=== PATIENT | female | born 1980 | race Caucasian/White ===

== ENCOUNTER 2019-04-11 17:48 | Emergency (ER) | payer SELFPAY ==
--- NOTE | 2019-04-11 17:52 | ER Report ---
History and Physical Time Seen By MD: 17:49 HPI/ROS CHIEF COMPLAINT: Requesting alcohol detox HISTORY OF PRESENT ILLNESS: This is a 38-year-old female who presents to the emergency department for alcohol detox. The patient is a resident of [facility], was seen in the emergency departments, admitted to the behavioral health units in [place] this past weekend, she states that she was treated poorly there and would not go back. She presents today with her , requesting alcohol detox, she drinks a bottle of wine a day, according to the and its the high alcohol concentration wine that she's been consuming recently. She also has a history of gastric bypass, she's had diarrhea, she's also had auditory hallucinations, currently no hallucinations or tremors. No suicidal or homicidal ideation. She states that she's been drinking large quantities of alcohol for the last couple of years, she lost her job in December secondary to alcohol. She denies fevers or chills. Denies chest pain or shortness of breath. She also states that she has dizziness pretty regularly, secondary to the alcohol. She has intermittent nausea and vomiting, she states this is fairly consistent after her gastric bypass about 4 years ago. She's been at an inpatient treatment program in [place]. REVIEW OF SYSTEMS: Constitutional: No fever, no chills. Eyes: No discharge. ENT: No sore throat. Cardiovascular: No chest pain, no palpitations. Respiratory: No cough, no shortness of breath. Gastrointestinal: As above. Genitourinary: No hematuria. Musculoskeletal: No back pain. Skin: No rashes. Neurological: As above. Psychological: As above. Allergies: Coded Allergies: acetaminophen (Verified Allergy, Severe, 04/11/19) hydrocodone (Verified Allergy, Severe, 04/11/19) NSAIDS (Non-Steroidal Anti-Inflamma (Verified Allergy, Unknown, HX GASTRIC BYPASS, 04/11/19) Home Meds Reported Medications Hydroxyzine Hcl (HYDROXYZINE HCL) Unknown Strength Tablet, PO 04/11/19 Propranolol Hcl (PROPRANOLOL HCL) 80 Mg Capcr, 80 MG PO DAILY 04/11/19 Aripiprazole (ABILIFY) 5 Mg Tablet, 5 MG PO QDAY, #10 TAB 04/11/19 Paroxetine Hcl (PAXIL) 20 Mg Tablet, 20 MG PO QDAY, TAB 04/11/19 Past Medical/Surgical History Patient has a past medical surgical history of gastric bypass, gallbladder disease, tubal ligation, alcohol abuse, depression. Reviewed Nurses Notes: Yes Constitutional Vital Sign - Last 24 Hours 04/11/19 04/11/19 04/11/19 04/11/19 17:52 17:55 18:00 18:15 Temp 97.5 Pulse 60 Resp 20 B/P (MAP) 112/73 (86) 112/73 103/67 (79) 122/75 (91) Pulse Ox 85 O2 Delivery Room Air 04/11/19 04/11/19 04/11/19 04/11/19 18:18 18:30 18:45 18:48 Pulse 59 59 B/P (MAP) 101/68 (79) 98/69 (79) Pulse Ox 96 96 04/11/19 04/11/19 04/11/19 04/11/19 19:00 19:15 19:18 19:23 Pulse 56 55 B/P (MAP) 98/68 (78) 95/63 (74) Pulse Ox 93 97 04/11/19 19:30 B/P (MAP) 98/67 (77) Physical Exam General Appearance: The patient is alert, has no immediate need for airway protection and no signs of toxicity. Eyes: Pupils equal and round no pallor or injection. ENT, Mouth: Mucous membranes are dry, tongue is purple, patient states from the wind she is consuming. Respiratory: There are no retractions, lungs are clear to auscultation. Cardiovascular: Regular rate and rhythm. No murmurs, clicks or rubs. Gastrointestinal: Abdomen is soft and non tender, no masses, bowel sounds normal. Neurological: Alert and oriented 4. Moving all extremities. Following all comma nds. No focal neuro deficits. Skin: Cheeks are flushed, otherwise unremarkable. Musculoskeletal: Neck is supple non tender. Extremities are nontender, nonswollen and have full range of motion. Psychological: The patient is making good eye contact, she is tearful, very soft voice, shoulders are slumped forward, hands are held together in her lap. She is cooperative. DIFFERENTIAL DIAGNOSIS: After history and physical exam differential diagnosis was considered for alcohol withdrawal, alcohol detox, substance abuse disorder, depression, anxiety. Medical Decision Making Data Points Result Diagram: 7/09/18 181004/11/191809 Laboratory Hematology Test 04/11/19 18:10 White Blood Count 6.7 k/uL (4.5-11.0) Red Blood Count 4.43 M/uL (4.17-5.56) Hemoglobin 14.0 g/dL (12.0-16.0) Hematocrit 41.1 % (34.0-47.0) Mean Corpuscular Volume 92.8 fL (80.0-96.0) Mean Corpuscular Hemoglobin 31.6 pg (26.0-33.0) Mean Corpuscular Hemoglobin Concent 34.0 g/dL (32.0-36.0) Red Cell Distribution Width 14.1 % (11.5-14.5) Platelet Count 231 K/uL (150-450) Mean Platelet Volume 7.2 fL (7.2-11.1) Neutrophils (%) (Auto) 63.5 % (39.4-72.5) Lymphocytes (%) (Auto) 29.0 % (17.6-49.6) Monocytes (%) (Auto) 5.8 % (4.1-12.4) Eosinophils (%) (Auto) 1.0 % (0.4-6.7) Basophils (%) (Auto) 0.7 % (0.3-1.4) Nucleated RBC Relative Count (auto) 0.2 /100WBC Neutrophils # (Auto) 4.3 K/uL (2.0-7.4) Lymphocytes # (Auto) 2.0 K/uL (1.3-3.6) Monocytes # (Auto) 0.4 K/uL (0.3-1.0) Eosinophils # (Auto) 0.1 K/uL (0.0-0.5) Basophils # (Auto) 0.0 K/uL (0.0-0.1) Nucleated RBC Absolute Count (auto) 0.01 K/uL Chemistry Test 04/11/19 18:10 Sodium Level 140 mmol/L (137-145) Potassium Level 4.8 mmol/L (3.5-5.0) Chloride Level 104 mmol/L (98-107) Carbon Dioxide Level 24 mmol/L (22-31) Blood Urea Nitrogen 10 mg/dl (7-18) Creatinine 0.70 mg/dl (0.52-1.04) Glomerular Filtration Rate Calc > 60.0 Random Glucose 95 mg/dl (75-110) Calcium Level 8.3 mg/dl (8.4-10.2) Magnesium Level 2.1 mg/dl (1.7-2.2) Total Bilirubin 0.5 mg/dl (0.2-1.3) Aspartate Amino Transf (AST/SGOT) 542 U/L (0-35) Alanine Aminotransferase (ALT/SGPT) 228 U/L (0-56) Alkaline Phosphatase 99 U/L (0-126) Total Protein 6.8 g/dl (6.3-8.2) Albumin 3.8 g/dl (3.5-5.0) Toxicology Test 04/11/19 17:59 04/11/19 18:10 Urine Opiates Screen Negative Urine Barbiturates Screen Negative Ur Tricyclic Antidepressants Screen Negative Urine Phencyclidine Screen Negative Urine Amphetamines Screen Negative Urine Benzodiazepines Screen Negative Urine Cocaine Screen Negative Urine Cannabinoids Screen Negative Salicylates Level < 10 mg/L Salicylate Last Dose Date unk Acetaminophen Level < 10 ug/ml Serum Alcohol 196 mg/dl Urinalysis Test 04/11/19 17:59 Urine Color Straw Urine Clarity Clear Urine pH 6.0 pH (4.8-9.5) Urine Specific Sandy 1.005 Urine Protein Negative mg/dL (NEGATIVE) Urine Glucose (UA) Negative mg/dL (NEGATIVE) Urine Ketones Negative mg/dL (NEGATIVE) Urine Blood Moderate (NEGATIVE) Urine Nitrite Negative (NEGATIVE) Urine Bilirubin Negative (NEGATIVE) Urine Urobilinogen Negative mg/dL (0.2-1.9) Urine Leukocyte Esterase Negative (NEGATIVE) Urine RBC None /HPF (0-2/HPF) Urine WBC 1 /HPF (0-5/HPF) Urine Squamous Epithelial Cells Few /LPF (</=FEW) Urine Bacteria Negative /HPF (NONE-FEW) Urine Mucus None /HPF (NONE-FEW) Urine HCG, Qualitative Negative (NEGATIVE) ED Course/Re-evaluation Clinical Indication for ER IV: Hydration, IV Access ED Course The patient was admitted to room. A history and physical obtained. Differential diagnoses were considered. A CBC, CMP and psych panel were obtained. An IV was started. One banana bag was given, 4 mg IV Zofran. CBC unremarkable, chemistry showing AST 542, ALT 228, UA unremarkable, negative tox screen, alcohol 196. I did speak with Liz Warren, as noted below, the patient was evaluated by the behavioral health tech, patient was admitted to the behavioral health unit. Patient remained cooperative while in the emergency department. 04/11/2019 6:48:27 pm I reviewed the patients case with Liz Pal, the behavioral health therapist urban design consultant [facility], she has accepted the patient in the behavioral health unit for alcohol detox. Decision to Disposition Date: Apr 11, 2019 Decision to Disposition Time: 18:49 Depart Departure Latest Vital Signs Vital Signs Date Time Temp Pulse Resp B/P (MAP) Pulse Ox O2 Delivery O2 Flow Rate FiO2 04/11/19 19:30 98/67 (77) 04/11/19 19:23 55 97 04/11/19 17:55 97.5 20 Room Air Impression: Primary Impression: Alcohol abuse Additional Impression: Alcohol withdrawal Condition: Improved Disposition: XFER TO [facility] Problem Qualifiers Additional Impression: Alcohol withdrawal Complication of substance-induced condition: with unspecified complication Qualified Codes: F10.239 - Alcohol dependence with withdrawal, unspecified RONNY JARVIS MEDICAL STAFFING COORDINATOR-BC Apr 11, 2019 17:52
[2019-04-11] MEDS ORDERED: PROL80 PO (17:58)
[2019-04-11] MEDS ORDERED: ABILIF5PT PO (17:58)
[2019-04-11] MEDS ORDERED: PARO-243 PO (17:58)
[2019-04-11] MEDS ORDERED: HYDR10TA3 PO (17:58)
[2019-04-11] MEDS ORDERED: THIAMINE HCL(*) 200 MG/2 ML IN 100 MG, FOLIC ACID(*) 50 MG/10 ML INJ 1 MG, MULTIVITAMIN... IV ONE (18:10)
[2019-04-11] MEDS ORDERED: THIAMINE HCL 200 MG/2 ML INJ ONE (18:11)
[2019-04-11] MEDS ORDERED: MULTIVITAMINS 10 ML VIAL IV ONE (18:12)
[2019-04-11] MEDS ORDERED: ONDANSETRON 4 MG/2 ML VIAL IVP ONE (18:15)
[2019-04-11 18:19] LABS: PLATELET COUNT, AUTOMATED 231 K/uL (150-450)
[2019-04-11 19:30] VITALS: BP 98/67
== END 2019-04-11 19:53 ==
LOC: ER 18:15
DX: F10.239 Alcohol dependence with withdrawal, unspecified (principal); Y90.6 Blood alcohol level of 120-199 mg/100 ml
CPT/HCPCS: 80305; 80320; 80329; 81001; 81025; 83735; 84443; 85025; 96365; 96375; 99284; J2405; J3411; J7030; 82040; 82247; 82310; 82374; 82435; 82565; 82947; 84075; 84132; 84155; 84295; 84450; 84460; 84520

== ENCOUNTER 2019-04-11 19:08 | Inpatient (IN) | payer SELFPAY ==
[~2019-04-11] VITALS: Ht 157.5 cm; Wt 79.4 kg
[~2019-04-11 19:08] MED LIST: ABILIF5PT PO; HYDR10TA3 PO; PARO-243 PO; PROL80 PO
[2019-04-11 19:55] VITALS: BP 108/68
[2019-04-11] MEDS ORDERED: MAG HYD/AL HYD/SIMETH 30ML UDC PO PRN (19:55)
[2019-04-11] MEDS: LORazepam 1 MG TAB PO PRN ×2 (20:49→22:42)
[2019-04-12 04:00] VITALS: BP 117/85
[2019-04-12] MEDS: LORazepam 1 MG TAB PO PRN ×6 (04:13→20:51)
[2019-04-12] MEDS: THIAMINE HCL 100 MG TAB PO SCH (07:23)
[2019-04-12] MEDS: FOLIC ACID 1 MG TAB PO SCH (07:23)
[2019-04-12] MEDS: MULTIVITAMINS TAB PO SCH (07:23)
[2019-04-12] MEDS: PARoxetine HCL 20 MG TAB PO SCH (10:13)
[2019-04-12] MEDS: ARIPiprazole 10 MG TAB PO SCH (10:13)
[2019-04-12] MEDS: PROPRANOLOL HCL LA 80 MG CAPCR PO SCH (10:13)
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
[2019-04-12 13:15] VITALS: BP 122/78
[2019-04-12] MEDS: hydrOXYzine PAMOATE 25 MG CAP PO PRN ×2 (15:10→19:54)
[2019-04-12 17:27] VITALS: BP 112/78
[2019-04-12 20:40] VITALS: BP 111/85
[2019-04-12] MEDS ORDERED: traZODone HCL 50 MG TAB PO PRN (21:00)
[2019-04-13] VITALS (8 sets, daily range): BP systolic 96–116; BP diastolic 54–84
[2019-04-13] MEDS: LORazepam 1 MG TAB PO PRN ×9 (00:46→21:09)
[2019-04-13] MEDS: PARoxetine HCL 20 MG TAB PO SCH (08:08)
[2019-04-13] MEDS: ARIPiprazole 10 MG TAB PO SCH (08:08)
[2019-04-13] MEDS: MULTIVITAMINS TAB PO SCH (08:08)
[2019-04-13] MEDS: FOLIC ACID 1 MG TAB PO SCH (08:08)
[2019-04-13] MEDS: THIAMINE HCL 100 MG TAB PO SCH (08:08)
[2019-04-13] MEDS: PROPRANOLOL HCL LA 80 MG CAPCR PO SCH (08:15)
[2019-04-13 11:03] LABS: PLATELET COUNT, AUTOMATED 189 K/uL (150-450)
--- NOTE | 2019-04-13 11:30 | BHS Progress Note ---
[facility] - Subjective Progress Notes Subjective "I feel exhausted. Anxiety about if I go home will I go to the store and buy alcohol. I want to be able to take care of my daughter." She reports feeling tired. She feel asleep after taking the Trazodone last night however slept for 2 hours and was unable to fall back to sleep. She did hear auditory hallucinations in the form of music and saw a shadow out of her periphery however reports that these symptoms are improving. She rates depression level a 7. She denies any SI. She reports anxiety level a 4 or 5. Continue to report motivation for treatment. Suicidal Ideation: None Homicidal Ideation: None [facility] - Objective Physical Exam Vital Signs Vital Signs Date Time Temp Pulse Resp B/P (MAP) Pulse Ox O2 Delivery O2 Flow Rate FiO2 04/13/19 06:37 88 Nasal Cannula 2.0 04/13/19 05:10 97.5 58 16 96/54 (68) Muscle Strength and Tone: WNL Gait and Station: Unsteady [facility] Medications Reviewed: Side Effects, Benefits of Medication, Risks Allergies Reviewed: Yes Mental Status Exam General Appearance: Casual, Well Groomed, Good Eye Contact, Cooperative, Polite , Good Interaction, Tearful (mildly at times); No Psychomotor Agitation; Psychomotor Retardation; No Bizarre Mannerisms, No Tics Speech: Clear, Spontaneous, Normal Rate, Normal Rhythm, Normal Volume; No Delayed Mood: Dysthmic/Depressed Affect: Sad, Anxious Thought Process: Organized, Logical, Goal Directed; No Loose Associations, No Flight of Ideas Thought Content: No Suicidal Ideation, No Homicidal Ideation, No Delusions; Auditory Halllucinations (has been hearing music on occasion) Sensorium: Clear Cognition: Alert & Oriented-Person, Alert & Oriented-Place, Alert & Oriented- Time, [id number]-Dgiwppwrk Memory: Immediate, Recent, Remote (grossly intact) Intelligence: Average Insight Judgment: Fair Result Diagram: 04/13/19 1047 [facility] Assessment and Plan [id number]-[id number] Encounter Date: Apr 13, 2019 [id number] Encounter Time: 09:00 [facility] Plan: Admit to Unit, Necessary Precautions, Individual/Group Therapy, Admin/Titrate Meds, Educate Patient Tobacco Medications: Not Appropriate Condition Multpiple Antipsychotics Used: No Problems: (1) Alcohol withdrawal Status: Acute (2) Alcohol abuse Status: Acute Condition Alcohol withdrawal is moderate at this time treated with lorazepam per NWI protocol. She has been experiencing poor sleep, fatigue, intermittent auditory hallucinations. She is experiencing some sadness and anxiety today without suicidal thoughts. She continues to report motivation for treatment. A PPD was placed yesterday in anticipation of such. Her will be involved in her treatment team meeting tomorrow morning per conference call as he lives and works in [place], [place]. Continue current medications and NWI protocol at this time. BONNIE BAXTER NP Apr 13, 2019 11:30
[2019-04-13] MEDS: hydrOXYzine PAMOATE 25 MG CAP PO PRN (13:44)
[2019-04-13] MEDS ORDERED: clonazePAM 0.5 MG ODT TABDP PO ONE ×2 (20:20→21:15)
[2019-04-13] MEDS: traZODone HCL 50 MG TAB PO SCH (21:11)
[2019-04-13] MEDS ORDERED: traZODone HCL 50 MG TAB PO PRN (22:00)
[2019-04-14] VITALS (7 sets, daily range): BP systolic 100–112; BP diastolic 70–80
[2019-04-14] MEDS: LORazepam 1 MG TAB PO PRN ×6 (00:19→09:51)
[2019-04-14] MEDS ORDERED: clonazePAM 0.5 MG ODT TABDP PO ONE ×2 (00:25→04:35)
[2019-04-14] MEDS: MULTIVITAMINS TAB PO SCH (07:39)
[2019-04-14] MEDS: FOLIC ACID 1 MG TAB PO SCH (07:39)
[2019-04-14] MEDS: PARoxetine HCL 20 MG TAB PO SCH (07:39)
[2019-04-14] MEDS: THIAMINE HCL 100 MG TAB PO SCH (07:39)
[2019-04-14] MEDS: ARIPiprazole 10 MG TAB PO SCH (07:39)
[2019-04-14 08:52] LABS: PLATELET COUNT, AUTOMATED 162 K/uL (150-450)
[2019-04-14] MEDS: PROPRANOLOL HCL LA 80 MG CAPCR PO SCH (08:55)
--- NOTE | 2019-04-14 09:30 | BHS Progress Note ---
[facility] - Subjective Progress Notes Subjective Patient remains on NWI protocol, pending labwork, will switch to valium, and wean off ativan if AST/ALT improves. Patient continues to experience some auditory/visual symptoms, likely related to DT's, Poor sleep continues, likely related in part to untreated sleep apnea. Will have meeting with later this AM. Patient reports poor relationship with , and may want to separate. Will continue treatment. Suicidal Ideation: None Homicidal Ideation: None [facility] - Objective Physical Exam Vital Signs Vital Signs Date Time Temp Pulse Resp B/P (MAP) Pulse Ox O2 Delivery O2 Flow Rate FiO2 04/14/19 03:10 98.0 72 12 111/77 (88) 99 Nasal Cannula 2.0 Hematology Test 04/14/19 08:43 White Blood Count 5.0 k/uL (4.5-11.0) Red Blood Count 3.75 M/uL (4.17-5.56) L Hemoglobin 11.8 g/dL (12.0-16.0) L Hematocrit 35.5 % (34.0-47.0) Mean Corpuscular Volume 94.7 fL (80.0-96.0) Mean Corpuscular Hemoglobin 31.5 pg (26.0-33.0) Mean Corpuscular Hemoglobin Concent 33.3 g/dL (32.0-36.0) Red Cell Distribution Width 13.6 % (11.5-14.5) Platelet Count 162 K/uL (150-450) Mean Platelet Volume 7.3 fL (7.2-11.1) Neutrophils (%) (Auto) 62.1 % (39.4-72.5) Lymphocytes (%) (Auto) 26.9 % (17.6-49.6) Monocytes (%) (Auto) 8.1 % (4.1-12.4) Eosinophils (%) (Auto) 2.1 % (0.4-6.7) Basophils (%) (Auto) 0.8 % (0.3-1.4) Nucleated RBC Relative Count (auto) 0.4 /100WBC Neutrophils # (Auto) 3.1 K/uL (2.0-7.4) Lymphocytes # (Auto) 1.4 K/uL (1.3-3.6) Monocytes # (Auto) 0.4 K/uL (0.3-1.0) Eosinophils # (Auto) 0.1 K/uL (0.0-0.5) Basophils # (Auto) 0.0 K/uL (0.0-0.1) Nucleated RBC Absolute Count (auto) 0.02 K/uL Chemistry Test 04/14/19 08:43 Serology Test 04/12/19 13:18 Muscle Strength and Tone: WNL Gait and Station: Unsteady [facility] Medications Reviewed: Side Effects, Benefits of Medication, Risks Allergies Reviewed: Yes Mental Status Exam General Appearance: Casual, Well Groomed, Good Eye Contact, Cooperative, Polite, Good Interaction, Tearful (mildly at times); No Psychomotor Agitation; Psychomotor Retardation; No Bizarre Mannerisms, No Tics Speech: Clear, Spontaneous, Normal Rate, Normal Rhythm, Normal Volume; No D elayed Mood: Dysthmic/Depressed Affect: Sad, Anxious Thought Process: Organized, Logical, Goal Directed; No Loose Associations, No Flight of Ideas Thought Content: No Suicidal Ideation, No Homicidal Ideation, No Delusions; Auditory Halllucinations (has been hearing music on occasion), Visual Hallucinations; No Thought Broadcasting, No Ideas of Reference, No Obsessions, No Compulsions Sensorium: Clear Cognition: Alert & Oriented-Person, Alert & Oriented-Place, Alert & Oriented- Time, Dljkf-Xpyafylt-[id number] Memory: Immediate, Recent, Remote (grossly intact) Intelligence: Average Insight Judgment: Appropriate, Fair (in absence of alcohol, improving. ) Result Diagram: 04/14/19 0843 04/13/19 1047 [facility] Assessment and Plan Ttan-jo-Luro Encounter Date: Apr 14, 2019 Tytd-[id number] Encounter Time: 09:00 [facility] Plan: Admit to Unit, Necessary Precautions, Individual/Group Therapy, Admin/Titrate Meds, Educate Patient Tobacco Medications: Not Appropriate Condition Multpiple Antipsychotics Used: No Problems: (1) Alcohol withdrawal Status: Acute (2) Alcohol use disorder, severe, in controlled environment Status: Chronic Condition 1. labs today, 2. look into rehab. 3. likely untreated obstructive sleep apnea. Problem Qualifiers (1) Alcohol withdrawal: Complication of substance-induced condition: with unspecified complication Qualified Codes: F10.239 - Alcohol dependence with withdrawal, unspecified DAVE SOTO MD Apr 14, 2019 09:30
[2019-04-14] MEDS: CHOLECALCIFEROL 1000 UNIT TAB PO SCH (11:50)
[2019-04-14] MEDS: DIAZEPAM 10 MG TAB PO PRN ×3 (11:50→22:03)
[2019-04-14] MEDS: traZODone HCL 50 MG TAB PO SCH (22:04)
[2019-04-15 02:53] VITALS: BP 113/79
[2019-04-15] MEDS: DIAZEPAM 10 MG TAB PO PRN ×2 (03:04→15:13)
[2019-04-15] MEDS: PROPRANOLOL HCL LA 80 MG CAPCR PO SCH (09:00)
[2019-04-15 10:04] VITALS: BP 118/80
[2019-04-15] MEDS: CHOLECALCIFEROL 1000 UNIT TAB PO SCH (10:08)
[2019-04-15] MEDS: MULTIVITAMINS TAB PO SCH (10:08)
[2019-04-15] MEDS: ARIPiprazole 10 MG TAB PO SCH (10:08)
[2019-04-15] MEDS: FOLIC ACID 1 MG TAB PO SCH (10:09)
[2019-04-15] MEDS: THIAMINE HCL 100 MG TAB PO SCH (10:09)
[2019-04-15] MEDS: PARoxetine HCL 20 MG TAB PO SCH (10:09)
[2019-04-15] MEDS: hydrOXYzine PAMOATE 25 MG CAP PO PRN (10:16)
--- NOTE | 2019-04-15 11:18 | BHS Progress Note ---
[facility] - Subjective Progress Notes Subjective Patient sleeping well last PM, will schedule sleep study based on overnight pulse oximetry readings. Alcohol withdrawal nearing completion now, and will plan on discharge to rehab on . No other concerns today. Labs tomorrow, and will consider increase in trazadone. Suicidal Ideation: None Homicidal Ideation: None [facility] - Objective Physical Exam Vital Signs Vital Signs Date Time Temp Pulse Resp B/P (MAP) Pulse Ox O2 Delivery O2 Flow Rate FiO2 04/15/19 02:53 97.8 78 16 113/79 (90) 90 Room Air 04/14/19 03:10 2.0 Muscle Strength and Tone: WNL Gait and Station: Unsteady [facility] Medications Reviewed: Side Effects, Benefits of Medication, Risks Allergies Reviewed: Yes Mental Status Exam General Appearance: Casual, Well Groomed, Good Eye Contact, Cooperative, Polite, Good Interaction; No Tearful, No Psychomotor Agitation, No Psychomotor Retardation, No Bizarre Mannerisms, No Tics Speech: Clear, Spontaneous, Normal Rate, Normal Rhythm, Normal Volume; No Delayed Mood: Dysthmic/Depressed Affect: Sad, Anxious Thought Process: Organized, Logical, Goal Directed; No Loose Associations, No Flight of Ideas Thought Content: No Suicidal Ideation, No Homicidal Ideation, No Delusions; Auditory Halllucinations (has been hearing music on occasion); No Visual Hallucinations, No Thought Broadcasting, No Ideas of Reference, No Obsessions, No Compulsions Sensorium: Clear Cognition: Alert & Oriented-Person, Alert & Oriented-Place, Alert & Oriented- Time, Ofbrz-Bkahsdbj-Ziycehagv Memory: Immediate, Recent, Remote Intelligence: Average Insight Judgment: Appropriate, Fair (in absence of alcohol, improving. ) Result Diagram: 04/14/19 0843 04/14/19 0843 [facility] Assessment and Plan Weyb-we-Njul Encounter Date: Apr 15, 2019 Euub-lq-Upho Encounter Time: 11:00 [facility] Plan: Admit to Unit, Necessary Precautions, Individual/Group Therapy, Admin/Titrate Meds, Educate Patient Tobacco Medications: Not Appropriate Condition Multpiple Antipsychotics Used: No Problems: (1) Alcohol withdrawal Status: Acute (2) Alcohol use disorder, severe, in controlled environment Status: Chronic (3) Partner relationship problem Status: Chronic Condition 1. labs in AM. 2. increase trazadone. 3. finalize plans for discharge to rehab on . Problem Qualifiers (1) Alcohol withdrawal: Complication of substance-induced condition: with unspecified complication Qualified Codes: F10.239 - Alcohol dependence with withdrawal, unspecified DAVE SOTO MD Apr 15, 2019 11:18
[2019-04-15 14:36] VITALS: BP 115/90
[2019-04-15] MEDS: LOPERAMIDE HCL 2 MG CAP PO PRN (15:13)
[2019-04-15] MEDS ORDERED: IBUPROFEN 200 MG TAB PO ONE (18:20)
[2019-04-15 20:13] VITALS: BP 106/70
[2019-04-15] MEDS ORDERED: traZODone HCL 50 MG TAB PO SCH (21:00)
[2019-04-16] MEDS: LOPERAMIDE HCL 2 MG CAP PO PRN ×2 (01:06→18:03)
[2019-04-16 05:25] VITALS: BP 109/73
[2019-04-16 06:09] LABS: PLATELET COUNT, AUTOMATED 177 K/uL (150-450)
[2019-04-16] MEDS: MULTIVITAMINS TAB PO SCH (08:27)
[2019-04-16] MEDS: CHOLECALCIFEROL 1000 UNIT TAB PO SCH (08:27)
[2019-04-16] MEDS: FOLIC ACID/CYANOCOB/PYRIDOXINE PO SCH (08:27)
[2019-04-16] MEDS: PROPRANOLOL HCL LA 80 MG CAPCR PO SCH (08:27)
[2019-04-16] MEDS: ARIPiprazole 10 MG TAB PO SCH (08:27)
[2019-04-16] MEDS: PARoxetine HCL 20 MG TAB PO SCH (08:27)
[2019-04-16 08:32] VITALS: BP 122/72
[2019-04-16] MEDS ORDERED: CYANOCOBALAMIN 1000MCG/ML VIAL IM ONLY ONE (11:00)
--- NOTE | 2019-04-16 11:55 | BHS Progress Note ---
[facility] - Subjective Progress Notes Subjective Patient's alcohol withdrawal now considered complete, and patient will leave the unit for entrance into alcohol rehab tomorrow. Mood improved overall interacting well with family present in room. Will consider increase in trazodone tonight. No other concerns. Suicidal Ideation: None Homicidal Ideation: None [facility] - Objective Physical Exam Muscle Strength and Tone: WNL Gait and Station: Unsteady [facility] Medications Reviewed: Side Effects, Benefits of Medication, Risks Allergies Reviewed: Yes Mental Status Exam General Appearance: Casual, Well Groomed, Good Eye Contact, Cooperative, Polite, Good Interaction; No Tearful, No Psychomotor Agitation, No Psychomotor Retardation, No Bizarre Mannerisms, No Tics Speech: Clear, Spontaneous, Normal Rate, Normal Rhythm, Normal Volume; No Delayed Mood: Dysthmic/Depressed Affect: Sad, Anxious Thought Process: Organized, Logical, Goal Directed; No Loose Associations, No Flight of Ideas Thought Content: No Suicidal Ideation, No Homicidal Ideation, No Delusions; Auditory Halllucinations (has been hearing music on occasion); No Visual Hallucinations, No Thought Broadcasting, No Ideas of Reference, No Obsessions, No Compulsions Sensorium: Clear Cognition: Alert & Oriented-Person, Alert & Oriented-Place, Alert & Oriented-Time, Pbszu-Qszgpeuj-Hehmoiuck Memory: Immediate, Recent, Remote Intelligence: Average Insight Judgment: Appropriate, Fair (in absence of alcohol, improving. ) Result Diagram: 04/16/19 0533 04/16/19 0533 [facility] Assessment and Plan [id number] Encounter Date: Apr 16, 2019 Hcox-kx-Tjil Encounter Time: 12:00 [facility] Plan: Admit to Unit, Necessary Precautions, Individual/Group Therapy, Admin/Titrate Meds, Educate Patient Tobacco Medications: Not Appropriate Condition Multpiple Antipsychotics Used: No Problems: (1) Alcohol withdrawal Status: Acute (2) Alcohol use disorder, severe, in controlled environment Status: Chronic (3) Partner relationship problem Status: Chronic Condition 1. prepare for discharge in AM to rehab. 2. increase trazodone. Problem Qualifiers (1) Alcohol withdrawal: Complication of substance-induced condition: with unspecified complication Qualified Codes: F10.239 - Alcohol dependence with withdrawal, unspecified DAVE SOTO MD Apr 16, 2019 11:55
[2019-04-16] MEDS: hydrOXYzine PAMOATE 25 MG CAP PO PRN (13:32)
[2019-04-16] MEDS ORDERED: traZODone HCL 50 MG TAB PO SCH (20:00)
[2019-04-17] MEDS: FOLIC ACID/CYANOCOB/PYRIDOXINE PO SCH (08:13)
[2019-04-17] MEDS: ARIPiprazole 10 MG TAB PO SCH (08:13)
[2019-04-17] MEDS: MULTIVITAMINS TAB PO SCH (08:14)
[2019-04-17] MEDS: PROPRANOLOL HCL LA 80 MG CAPCR PO SCH (08:14)
[2019-04-17] MEDS: CHOLECALCIFEROL 1000 UNIT TAB PO SCH (08:14)
[2019-04-17] MEDS: PARoxetine HCL 20 MG TAB PO SCH (08:14)
[2019-04-17 08:16] VITALS: BP 116/82
[2019-04-17] MEDS ORDERED: TRAZ150T8 PO (08:36)
[2019-04-17] MEDS ORDERED: B12/1TAB PO (08:38)
[2019-04-17] MEDS ORDERED: MULT-1379 PO (08:39)
[2019-04-17] MEDS ORDERED: PROP80CA40 PO (08:39)
[2019-04-17] MEDS ORDERED: CHOL10005 PO (08:40)
[2019-04-17] MEDS ORDERED: HYDR25CA83 PO ×2 (08:41→08:44)
--- NOTE | 2019-04-18 20:43 | SCHAAF DISCHARGE ---
DATE OF ADMISSION: April 11, 2019 DATE OF DISCHARGE: April 17, 2019 ATTENDING PHYSICIAN Isidro Matta MD Patient was seen approximately 0800 hours on the morning of 17 April 2019 for note concerning this dictation. FINAL DIAGNOSES 1. Alcohol use disorder, severe. 2. Alcohol withdrawal, considered complete. 3. Generalized anxiety disorder. 4. Persisting depressive disorder. 5. Ongoing polycystic ovarian syndrome. 6. Patient likely having significant obstructive sleep apnea. 7. Patient has supportive family. REASON FOR ADMISSION This is a pleasant 38-year-old female who took a very active role in her care. Patient admitted for alcohol withdrawal, which was treated to completion. Patient found to be in need of sleep study, likely suffering from obstructive sleep apnea as well. Patient agreed to enter rehab at [facility] upon completion of alcohol withdrawal. Mood improved. Relationship with continues to have some difficulty, although absence of alcohol will have to be taken into account and time given as use of alcohol was certainly a stressor in the relationship. No parasuicidal behaviors were seen. Patient was very cooperative and pleasant throughout her stay and took an active role in her treatment. Patient was discharged in care of family for transport to [facility] to enter rehab for alcohol use disorder. PHYSICAL EXAMINATION Please see emergency room note. Notable for: GENERAL: A 38-year-old female. VITAL SIGNS: At time of admission, temperature 97.5, pulse 60, respiratory rate 20, blood pressure 112/73, and pulse oximetry low at 85% upon admission. At time of discharge, vital signs showed temperature 98.6, pulse 69, respiratory rate 16, blood pressure 122/72, and pulse oximetry 92% on room air. LABORATORY DATA CBC on 04/16/2019 notable for RBCs slightly low at 3.75 and hemoglobin low at 11.9. Chemistry panel on 04/16/2019 notable for total bilirubin at 0.4, normal range, with AST and ALT both at 110. Vitamin D 25-hydroxy level was low at 21, with a vitamin B12 level at 343, and folate greater than 22.3 in this status post gastric bypass patient. TSH 1.15 and normal range. Urinalysis unremarkable. screen negative. Toxicology screen negative for substances of abuse. Serum alcohol level 196 upon admission. MENTAL STATUS EXAMINATION AT TIME OF DISCHARGE GENERAL APPEARANCE, BEHAVIOR, AND ATTITUDE: This is a cooperative, pleasant, 38-year-old female, appears stated age, interacting well with family members, treatment team staff, and this provider. No periods of tearfulness. No bizarre mannerisms or tics. SPEECH: Within normal limits. Regular rate, rhythm, volume, and tone. MOOD: Described as good. AFFECT: Full and mood congruent. THOUGHT PROCESSES: Goal directed, logical. Patient intending to finish rehab program in [facility] and continue abstinence from alcohol and follow up with sleep study. No loose associations or flight of ideas. THOUGHT CONTENT: Free of auditory or visual hallucinations, ideas of reference, thought broadcasting, delusions, obsessions, compulsions. Patient adamantly denying suicidal or homicidal ideation at time of discharge. SENSORIUM: Clear. COGNITION: Alert and oriented to person, place, time, and situation. MEMORY: Immediate, recent, and remote estimated intact. INTELLIGENCE: Average based on interview. INSIGHT AND JUDGMENT: Considered grossly intact in the absence of alcohol use. RESULTS OF TESTING Imaging: None. Laboratory data: See above. CONSULTATIONS None. TREATMENT Patient received medications, participated in individual and group therapy. HOSPITAL COURSE Patient was found to likely be suffering from significant sleep apnea and was ready for an appointment at sleep lab to be ordered. It was scheduled here at [facility] in the future, and it may be possible to complete this at [facility] as well. Patient tolerated medication management well and participated in individual and group therapy well. No parasuicidal behaviors were seen. Patient discharged to care of family. CONDITION OF PATIENT ON DISCHARGE Stable. Considered a minimal risk to herself or others and appropriate for outpatient care. DISPOSITION Patient discharged to home in care of family. Patient would follow up in the [facility] during rehab. Patient would abstain from alcohol. DISCHARGE MEDICATIONS 1. Abilify 5 mg daily. 2. Trazodone 150 to 450 mg at bedtime. 3. Foltx tab daily. 4. Inderal 80 mg daily. 5. Paxil 20 mg daily. 6. Multivitamin with minerals daily. 7. Vitamin D3 2000 International Units daily. 8. Patient could continue Vistaril at 25 to 50 mg p.o. q.8 hours p.r.n. for anxiety as well. Again, would follow up with sleep study. 9. Patient was given cyanocobalamin injection 1000 mcg while on the unit as well in this status post gastric bypass patient. Risks, benefits, and alternatives of the above discharge plan were discussed. Informed consent was given to proceed with the above discharge plan by this competent patient and patient's family members present at time of discharge. YULY
== END 2019-04-17 09:17 | DRG 897 ==
LOC: BHS 19:08
PROVIDERS: ADMIT Registered Nurse Psychiatric/Mental Health, Adult; ATTEND Registered Nurse Psychiatric/Mental Health, Adult
DX: F10.230 Alcohol dependence with withdrawal, uncomplicated (principal); F41.1 Generalized anxiety disorder; F34.1 Dysthymic disorder; E28.2 Polycystic ovarian syndrome; G47.33 Obstructive sleep apnea (adult) (pediatric); Y90.6 Blood alcohol level of 120-199 mg/100 ml; Z63.0 Problems in relationship with spouse or partner; Z98.84 Bariatric surgery status; Z62.810 Personal history of physical and sexual abuse in childhood; Z62.811 Personal history of psychological abuse in childhood
CPT/HCPCS: 36415; 82040; 82247; 82306; 82310; 82374; 82435; 82565; 82607; 82746; 82947; 83735; 84075; 84132; 84155; 84295; 84450; 84460; 84520; 85025; 86580; J3420; Q0177